=== PATIENT | female | born 1985 | race Two or more races ===

== ENCOUNTER 2023-12-24 10:46 | Emergency (ER) | payer BC ==
[~2023-12-24] VITALS: Ht 157.5 cm; Wt 40.8 kg
[2023-12-24 11:03] VITALS: BP 121/68; TEMP 98.4
[2023-12-24] MEDS ORDERED: LORAZEPAM 1 MG TABLET ONE (12:33)
[2023-12-24] MEDS: LORAZEPAM 1 MG TABLET PO ONE (12:36)
[2023-12-24] MEDS ORDERED: LORA-259 PO (14:51)
[2023-12-24 14:55] VITALS: O2SAT 99
== END 2023-12-24 14:56 | disposition home or self-care (01) ==
LOC: ER 10:46
DX: F41.9 Anxiety disorder, unspecified (principal); G47.00 Insomnia, unspecified; Z88.8 Allergy status to other drugs, medicaments and biological substances